=== PATIENT | male | born 1965 | race Caucasian/White ===

== ENCOUNTER → 2016-09-04 | Outpatient (CLI) | payer BC ==
--- NOTE | 2016-09-04 13:50 | CT ---
EXAMINATION TYPE: CT brain wo con DATE OF EXAM: 09/04/2016 1:39 PM COMPARISON: 12/26/2015 HISTORY: 51-year-old male complains chronic headache since fall 1 year ago. Personal history of traum atic brain injury. TECHNIQUE: Examination was done in axial plane without intravenous contrast. Coronal and sagittal reconstructio ns performed. CT DLP: 1074.4 mGycm Automated exposure control for dose reduction was used. FINDINGS: Lucency related to the patient's coronally oriented skull fracture is again noted but is less defined suggesting some interval healing. The patient's left parietal fracture appears largely healed. There is overall stable appearance of the right middle cranial fossa suggesting cortical encephalomal acia of the temporal lobe. There is secondary ex vacuo enlargement of the temporal horn of the right lateral ventricle, similar to prior. No evidence for acute intracranial hemorrhage, acute ischemic change, mass, mass effect, midline shif t, extra-axial fluid collection. No hydrocephalus. No effacement of cerebral sulci or basal subarachn oid cisterns. Meade-white matter differentiation is maintained. Paranasal sinuses show some partial opacification in the ethmoid air cells and left renal sinus. Mast oid air cells well pneumatized. Orbits and globes appear intact. IMPRESSION: 1. 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 No residual hemorrhage or acute intracranial abnormality seen. 2. The patient's coronally oriented skull fracture shows interval healing. Some residual fracture caesar ency still remains visible. The patient's minimally depressed left parietal skull fracture has largel y healed.
== END | disposition home or self-care (01) ==
LOC: RADCTMAIN 13:19
PROVIDERS: ATTEND Psychiatry & Neurology Neurology
DX: G93.89 Other specified disorders of brain (principal); G44.321 Chronic post-traumatic headache, intractable
CPT/HCPCS: 70450

== ENCOUNTER → 2017-09-09 | Outpatient (CLI) | payer BC ==
--- NOTE | 2017-09-09 12:11 | XR ---
EXAMINATION TYPE: XR cervical spine comp DATE OF EXAM: 09/09/2017 TECHNIQUE: Frontal, lateral, oblique, and open mouth view of the cervical spine are obtained. HISTORY: M54.3 Cervicalgia . Cervical pain from accident years ago per patient worse over last 3 mon ths. COMPARISON: None FINDINGS: The cervical spine is visualized in its entirety from C1 thru the top of T1 level, it is s traightened in alignment without evidence of acute fracture or dislocation. The pre-vertebral soft t issue appears within normal limits. The C1-C2 articulation is within normal limits on the open mouth view. Vertebral body heights are maintained. There is moderate to severe disc space narrowing and spurring C4-C5, C5-C6, and C6-C7 levels. Oblique images are felt within normal limits. Overlying soft tissue i s unremarkable. IMPRESSION: Straightening of cervical spine with moderate to severe multilevel degenerative changes s een as detailed above.
== END | disposition home or self-care (01) ==
LOC: RADXRMAIN 11:41
PROVIDERS: ATTEND Family Medicine
DX: M47.812 Spondylosis without myelopathy or radiculopathy, cervical region (principal)
CPT/HCPCS: 72050

== ENCOUNTER → 2022-12-17 | Outpatient (CLI) | payer BC ==
--- NOTE | 2022-12-23 08:42 | MR ---
EXAMINATION TYPE: MR brain wo/w con DATE OF EXAM: 12/17/2022 COMPARISON: CT brain 09/04/2016 HISTORY: Severe headaches, head injury. TECHNIQUE: Multiplanar, multisequence images of the brain and brainstem is performed without and with IV contras t, utilizing 11 mL intravenous Gadavist . FINDINGS: Diffusion weighted images demonstrate no evidence of a recent infarct or other diffusion ab normality. There is [id number] generalized degenerative change with diffuse focal areas of abnormal signal in the white matter which are nonspecific. Area of encephalomalacia and remote ischemia involving th e right temporal lobe. Stable from prior CT scan. Midline structures demonstrate normal morphology. The craniocervical junction appears within normal limits. Post contrast images demonstrate no abnormal enhancement. The dural venous sinuses appear pa tent. Changes of mild chronic sinusitis and the globes are intact. Nasal septal deviation noted. IMPRESSION: 1. Degenerative and remote ischemic change with no acute process.
== END | disposition home or self-care (01) ==
LOC: RADMRIMAIN 09:02
PROVIDERS: ATTEND Psychiatry & Neurology Neurology
DX: G44.221 Chronic tension-type headache, intractable (principal); G43.719 Chronic migraine without aura, intractable, without status migrainosus; I67.82 Cerebral ischemia
CPT/HCPCS: 70553; A9585

== ENCOUNTER → 2023-08-06 | Outpatient (CLI) | payer BC ==
--- NOTE | 2023-08-06 19:09 | CA ---
Transthoracic Echo Report Name: Domenico Brown Age: 57 Gender: M : 1965 Exam Date: 08/06/2023 15:55 Exam Location: [facility] Ht (in): 72 Wt (lb): 255 Ordering Physician: Pippa Chapman MD Attending/Referring Phys: Pippa Chapman MD [employer] [facility] H[facility] Procedure CPT: Indications: R60.0 LOCALIZED EDEMA Cardiac Hx: Technical Quality: Fair Contrast 1: Total Dose (mL): Contrast 2: Total Dose (mL): MEASUREMENTS (Male / Female) Normal Values 2D ECHO LV Diastolic Diameter PLAX 4.1 cm 4.2 - 5.9 / 3.9 - 5.3 cm LV Systolic Diameter PLAX 2.4 cm IVS Diastolic Thickness 1.0 cm 0.6 - 1.0 / 0.6 - 0.9 cm LVPW Diastolic Thickness 1.1 cm 0.6 - 1.0 / 0.6 - 0.9 cm LV Relative Wall Thickness 0.5 RV Internal Dim ED PLAX 3.1 cm LA Systolic Diameter LX 3.5 cm 3.0 - 4.0 / 2.7 - 3.8 cm LV Diastolic Volume MOD BP 77.3 cm??? 67 - 155 / 56 - 104 cm??? LV Systolic Volume MOD BP 37.1 cm??? - 58 / 19 - 49 cm??? LV Ejection Fraction MOD BP 52.0 % >= 55 % LV Cardiac Index MOD BP 1681.9 cm???/min???m??? LV Diastolic Volume MOD 4C 86.7 cm??? LV Systolic Volume MOD 4C 31.8 cm??? LV Ejection Fraction MOD 4C 63.3 % LV Cardiac Index MOD 4C 2298.3 cm???/min???m??? LV Diastolic Length 4C 8.1 cm LV Systolic Length 4C 6.8 cm LV Diastolic Volume MOD 2C 66.8 cm??? LV Systolic Volume MOD 2C 42.0 cm??? LV Ejection Fraction MOD 2C 37.2 % LV Cardiac Index MOD 2C 1038.3 cm???/min???m??? LV Diastolic Length 2C 7.7 cm LV Systolic Length 2C 6.5 cm LA Volume 43.1 cm??? 18 - 58 / 22 - 52 cm??? LA Volume Index 17.5 cm???/m??? 16 - 28 cm???/m??? M-MODE Aortic Root Diameter MM 3.3 cm MV E Point Septal Separation 0.6 cm AV Cusp Separation MM 2.0 cm DOPPLER AV Peak Velocity 136.2 cm/s AV Peak Gradient 7.4 mmHg MV Area PHT 2.7 cm??? Mitral E Point Velocity 54.1 cm/s Mitral A Point Velocity 95.8 cm/s Mitral E to A Ratio 0.6 MV Deceleration Time 286.0 ms MV E' Velocity 8.5 cm/s Mitral E to MV E' Ratio 6.4 FINDINGS Left Ventricle Left ventricular ejection fraction is estimated at 55-60 %. Left ventricular cavity size normal. Left ventricular wall thickness normal. No obvious regional wall motion abnormalities. Right Ventricle Normal right ventricular size. Unable to estimate the right ventricular systolic pressure. Right Atrium Normal right atrial size. Left Atrium Normal left atrial size. Mitral Valve Structurally normal mitral valve. No mitral stenosis, regurgitation or prolapse. Aortic Valve Trileaflet aortic valve. No aortic valve stenosis or regurgitation. Tricuspid Valve Structurally normal tricuspid valve. No tricuspid regurgitation. Pulmonic Valve Structurally normal pulmonic valve. No pulmonic regurgitation. Pericardium Normal pericardium. Aorta Normal size aortic root and proximal ascending aorta. CONCLUSIONS Technically difficult study for interpretation Normal LV systolic function Previewed by: Dr. Henry Wright MD (Electronically Signed) Final Date: 06 August 2023 19:08
== END | disposition home or self-care (01) ==
LOC: RADECHMAIN 15:37
PROVIDERS: ATTEND Family Medicine
DX: R60.0 Localized edema (principal)
CPT/HCPCS: 93306

== ENCOUNTER → 2023-09-28 | Outpatient (CLI) | payer BC ==
--- NOTE | 2023-09-28 11:27 | US ---
EXAMINATION TYPE: US abdomen complete DATE OF EXAM: 09/28/2023 COMPARISON: NONE CLINICAL INDICATION: Male, 58 years old with history of R74.01 ELEVATED LIVER ENZYME LEVELS; elevated liver enzymes TECHNIQUE: Multiple sonographic images of the abdomen are obtained. FINDINGS: EXAM MEASUREMENTS: Liver Length: 21.8 cm Gallbladder Wall: .3 cm CBD: .6 cm Spleen: 13 cm Right Kidney: 10.7 x 4.1 x 5.2 cm Left Kidney: 11.8 x 5.5 x 5.1 cm Pancreas: Obscured by bowel gas Liver: Increased attenuation hepatomegaly. Gallbladder: wnl Evidence for sonographic Coreas's sign: No CBD: wnl Spleen: wnl Right Kidney: wnl Left Kidney: wnl Upper IVC: Obscured by overlying bowel gas Abd Aorta: Obscured by overlying bowel gas The liver is homogenous. The intrahepatic portion of the IVC and proximal abdominal aorta are within normal limits. There is no evidence of cholelithiasis. Common bile duct is unremarkable. The visu alized portions of the pancreas are homogenous. The spleen is unremarkable. Kidneys are symmetric a nd free of hydronephrosis. No renal lesions are seen. IMPRESSION: 1. Hepatic steatosis with hepatomegaly. 2. No evidence for acute process.
== END | disposition home or self-care (01) ==
LOC: RADUSWWP 09:39
PROVIDERS: ATTEND Family Medicine
DX: R16.0 Hepatomegaly, not elsewhere classified (principal); R76.0 Raised antibody titer; R74.01 Elevation of levels of liver transaminase levels
CPT/HCPCS: 76700